=== PATIENT | male | born 1950 | race Caucasian/White ===

== ENCOUNTER 2022-05-12 23:36 | Outpatient (REF) | payer MEDICARE, BC, SELFPAY | END 2022-05-12 23:37 | disposition home or self-care (01) | LOC: LBN 23:36 | PROVIDERS: Visit Provider Nurse Practitioner Family | DX: R35.0 Frequency of micturition (principal) | CPT/HCPCS: 87077; 87086; 87186 ==

== ENCOUNTER 2022-06-03 02:50 | Inpatient (IN) | payer MEDICARE, BC, OTHER, SELFPAY ==
[2022-06-03] VITALS (50 sets, daily range): BP systolic 116–144; BP diastolic 64–88; PULSE 74–102; RESP 12–30; TEMP 36.3–37.1; O2SAT 96–100; BMI 25.2
--- NOTE | 2022-06-03 03:00 | DI.RAD_ITS ---
Exam(s) XR CHEST 1V IN DI DEPT EXAM: XR CHEST 1V IN DI DEPT CLINICAL HISTORY: vomiting TECHNIQUE: 2D digital imaging was performed. COMPARISON: No exams were available for comparison FINDINGS: The exam is limited by poor pulmonary inflation. The heart size is within normal limits. A pacemak er is noted. There is basilar atelectasis. There is no gross infiltrate. The stomach appears somew hat distended. No free air is noted beneath the diaphragm. IMPRESSION: Limited exam. Basilar atelectasis. Gastric distension. DATA REPOSITORY: RADIATION DOSE DELIVERED:
--- NOTE | 2022-06-03 03:00 | DI.CT_ITS ---
Exam(s) CT HEAD WO EXAM: CT HEAD WO CLINICAL HISTORY: vomiting. TECHNIQUE: Imaging Protocol: Axial computed tomography images with coronal and sagittal reformatted images were created and reviewed COMPARISON: No exams were available for comparison FINDINGS: Ventricles and Extra axial spaces: Normal in size and morphology for the patient's age. Hemorrhage: None. Cerebral parenchyma: Moderate atrophy. White matter changes consistent with small vessel disease. Midline shift: None. Brainstem/Cerebellum: Normal. Calvarium: Normal. Visualized Paranasal sinuses/Mastoids: Clear. IMPRESSION: No acute abnormality. RADIATION DOSE DELIVERED: 796.72mGy.cm Total DLP 796.72mGy.cm Total DLP DATA REPOSITORY: All CT scans at this facility are submitted to the National Radiology Data Registry (NRDR) Dose Index Registry (DIR) with the [employer] ([employer]). RADIATION OPTIMIZATION: All CT scans at this facility use at least one of these dose optimization te chniques: automated exposure control; mA and/or kV adjustment per patient size (includes targeted exa ms where dose is matched to clinical indication); or iterative reconstruction.
--- NOTE | 2022-06-03 03:00 | DI.CT_ITS ---
Exam(s) CT ABDOMEN PELVIS W EXAM: CT ABDOMEN PELVIS W CLINICAL HISTORY: vomiting, hx of abd surgery. TECHNIQUE: Imaging Protocol: Axial computed tomography images with coronal and sagittal reformatted images were created and reviewed CONTRAST MATERIAL: Intravenous: Omnipaque 350 Contrast volume:100 ml Oral: no COMPARISON: CR XR CHEST 1V IN DI DEPT from 06/03/2022 FINDINGS: ABDOMEN: Lung Bases: Limited due to respiratory motion. Basilar atelectasis or scarring. Small hiatal hernia . Pacemaker leads. Liver: Somewhat limited evaluation due to motion. Question fatty infiltration. Normal size.. No me asurable mass. Gallbladder and biliary tract: Cholelithiasis. No biliary dilation. Pancreas: Normal density, no abnormal calcifications or inflammatory process. Spleen: Normal. Kidneys: Normal size, contour and axis. No radiodense stones or obstructive uropathy. No masses seen. Adrenal glands: No masses seen. Abdominal Aorta: Abdominal portion non-dilated. Atherosclerotic changes. Stomach and small bowel: Marked gastric distention without evidence of obstructing mass. Small bowel nondistended. PELVIS: Bladder: No gross wall thickening. No calculi.No focal mass. Bowel: Wall thickening of the ascending colon the small amount of surrounding fluid in some edema in the surrounding fat. Remainder of the colon unremarkable.. Appendix not seen. Peritoneal cavity: No ascites, collection or mesenteric inflammatory response. Bones: Within normal limits for age. Reproductive organs: Mildly enlarged prostate.. Lymph nodes: Unremarkable. Impression: Wall thickening of the ascending colon with surrounding edema , suspicious for colitis. Gastric distension without evidence obstructing mass. Could be secondary to stricture. No visible i nflammatory changes. RADIATION DOSE DELIVERED: 847.02mGy.cm Total DLP DATA REPOSITORY: All CT scans at this facility are submitted to the National Radiology Data Registry (NRDR) Dose Index Registry (DIR) with the [employer] (ACR). RADIATION OPTIMIZATION: All CT scans at this facility use at least one of these dose optimization te chniques: automated exposure control; mA and/or kV adjustment per patient size (includes targeted exa ms where dose is matched to clinical indication); or iterative reconstruction.
[2022-06-03 03:12] LABS: BE (Venous) 1 mmol/L (-2-3); HCO3 (Venous) 24 mmol/L (23-28); O2 Sat (Venous) 99 %; TCO2 (Venous) 21 mmol/L (24-29); pCO2 (Venous) 30 mmHg (41-51); pH (Venous) 7.52 (7.31-7.41); pO2 (Venous) 99 mmHg
[2022-06-03 03:14] LABS: Abs Immature Grans 0.02 10^3/uL (0.0-0.06); Absolute Basophil Count 0.04 10^3/uL (0.0-0.2); Absolute Eosinophil Count 0.14 10^3/uL (0.0-0.7); Absolute Lymphocyte Count 1.06 10^3/uL (1.2-3.4); Absolute Monocyte Count 0.83 10^3/uL (0.1-0.8); Basophils % 0.5; Eosinophils % 1.8; HCT 42.9 % (40.0-50.0); HGB 14.7 g/dL (13.5-17.5); Immature Grans % 0.3; Lymphocytes % 13.4; MCH 30.8 pg (27.0-33.0); MCHC 34.3 % (32.0-36.0); MCV 90 fL (80-95); MPV 10.4 fL (8.0-11.0); Monocytes % 10.5; Neutrophils % 73.5; RBC 4.77 10^6/uL (4.36-5.78); RDW 14.1 % (11.8-14.1); RDW-SD 47.1 fL; WBC 7.89 10^3/uL (4.4-10.8)
[2022-06-03 03:28] LABS: Diff Comment PLT Morph Reviewed; Platelet Count 93 10^3/uL (130-400)
[2022-06-03 03:29] LABS: ALT 36 U/L (16-63); AST 40 U/L (15-37); Albumin 3.1 g/dL (3.4-5.0); Alkaline Phosphatase 186 U/L (46-116); Anion Gap 8.6 mmol/L (3-11); BUN 19 mg/dL (7-18); Bilirubin, Total 1.6 mg/dL (0.2-1.0); CO2 24.4 mmol/L (21.0-32.0); Calcium 8.8 mg/dL (8.5-10.1); Chloride 101 mmol/L (98-107); Estimated GFR 79.47 (mL/min/1.73m2); Glucose 241 mg/dL (74-106); Potassium 3.3 mmol/L (3.5-5.1); Sodium 134 mmol/L (136-145); Total Protein 7.5 g/dL (6.4-8.2)
[2022-06-03] MEDS: Normal Saline 1,000 ML 1000 ML IV (03:30)
[2022-06-03] MEDS: Ondansetron 4 MG/2 ML VIAL IVP ×2 (03:31→08:00)
[2022-06-03 03:34] LABS: Lipase 77 U/L (73-393); Troponin I < 50 ng/L (<or=60)
--- NOTE | 2022-06-03 03:35 | ED.GENADUL_ITS ---
Discharge Plan Disposition Patient Disposition: [facility] INPATIENT Condition: Stable Discharge Details Chief Complaint: Nausea/Vomit/Diar Clinical Impression: Gastric outlet obstruction Primary Care Provider: Unknown,Unknown ED Provider: Silvio Robles Home Meds and New Rx's Prescriptions: No Action atorvastatin 40 mg Tablet 40 mg PO QHS sennosides 8.6 mg Tablet 17.2 mg PO BID PRN citalopram 40 mg Tablet 40 mg PO DAILY atenolol 25 mg Tablet 25 mg PO HS acetaminophen 500 mg Tablet 1,000 mg PO Q8H PRN famotidine 20 mg Tablet 20 mg PO BID ondansetron 4 mg Tablet,Disintegrating 4 mg PO Q8H PRN insulin lispro [Humalog KwikPen Insulin] 100 unit/mL Insulin Pen 1 sliding scale dose SUBCUT USEASDIRECTD memantine [Namenda] 10 mg Tablet 10 mg PO BID insulin glargine [Basaglar KwikPen U-100 Insulin] 100 unit/mL (3 mL) Insulin Pen 25 unit SUBCUT QAM Victoza 2-Dionisio 0.6 mg/0.1 mL (18 mg/3 mL) Pen Injector 0.6 mg SUBCUT DAILY Medical Decision Making 72-year-old male presents brought in by EMS after mechanical fall at [facility], unclear details of fall, no external signs of trauma, patient did have episode of emesis in route following commands, opening eyes spontaneously responding to verbal stimuli, baseline dementia. Abdomen soft nontender nondistended. However given age unknown mechanism of injury and presentation of vomiting must consider intracranial process versus viral syndrome versus intra- abdominal process such as enterocolitis obstruction less likely cholecystitis or appendicitis versus less assess for cardiac etiology of fall although not endorsing any chest pain versus metabolic derangement versus less likely stroke. Screening labs imaging disposition pending reassessment and results 7: 31 imaging concerning for gastric outlet obstruction. Will place NG tube at bedside. Patient hemodynamically stable. I discussed case with Dr. Barrios of general surgery who will admit patient and plan for EGD today. We will continue with fluids and NG tube to suction. HPI General Date/Time Provider Initiated Documentation: 06/03/22 03:00 . HPI Narrative: 72-year-old male presents brought in from [facility] after mechanical fall this evening unknown details of fall. Patient had episode of emesis in route. Per report is also had some loose stool. Patient has dementia at baseline history of physical limited by baseline mental status Related Data Home Medications Medication Instructions Recorded Confirmed acetaminophen 500 mg tablet 1,000 mg PO Q8H PRN 06/03/22 06/03/22 atenolol 25 mg tablet 25 mg PO HS 06/03/22 06/03/22 atorvastatin 40 mg tablet 40 mg PO QHS 06/03/22 06/03/22 citalopram 40 mg tablet 40 mg PO DAILY 06/03/22 06/03/22 famotidine 20 mg tablet 20 mg PO BID 06/03/22 06/03/22 insulin glargine 100 unit/mL (3 25 unit subcut QAM 06/03/22 06/03/22 mL) subcutaneous pen (Basaglar KwikPen U-100 Insulin) insulin lispro 100 unit/mL 1 sliding scale dose subcut 06/03/22 06/03/22 subcutaneous pen (Humalog KwikPen USEASDIRECTD (U-100) Insulin) liraglutide 0.6 mg/0.1 mL (18 mg/3 0.6 mg subcut DAILY 06/03/22 06/03/22 mL) subcutaneous pen injector (Victoza 2-Dionisio) memantine 10 mg tablet (Namenda) 10 mg PO BID 06/03/22 06/03/22 ondansetron 4 mg disintegrating 4 mg PO Q8H PRN 06/03/22 06/03/22 tablet sennosides 8.6 mg tablet 17.2 mg PO BID PRN 06/03/22 06/03/22 Allergies Allergy/AdvReac Type Severity Reaction Status Date / Time codeine Allergy Unverified 06/03/22 03:42 Sulfa (Sulfonamide Allergy Unverified 06/03/22 03:42 Antibiotics) tetracycline Allergy Unverified 06/03/22 03:42 General Stated Complaint: Nausea/Vomit/Diar YUDITH: 3 Review of Systems Narrative: Review of Systems Constitutional: Fall Eyes: negative ENT: negative Cardiovascular: negative Respiratory: negative Gastrointestinal: Vomiting : negative Musculoskeletal: negative Skin: negative Neurologic: negative Psych: negative PFSH All Active Problems (Updated 06/03/22 @ 07:34 by Silvio Robles MD) Gastric outlet obstruction (Acute) 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 Exam Narrative Exam Narrative: Physical Examination General: alert, awake HEENT: normocephalic, atraumatic; PERRL, EOM intact, conjunctiva normal; no nasal discharge; slight drying of oral mucosa Neck: supple, trachea midline; full ROM Chest: normal to inspection Respiratory: normal respiratory effort, speaking in full sentences, clear to auscultation, no wheezing, rales or rhonchi Cardiac: regular rate, regular rhythm, S1S2 intact, no murmurs rubs or gallops GI: abdomen soft, non-tender, non-distended; no palpable mass or hepatosplenomegaly Skin: no lesions, rashes or trauma appreciated Neuro: Opening eyes to command, responding to verbal stimuli, moving all EXTR Extremities: Moving all extremities no deformity Psych: Appropriate mood and affect Course Vital Signs Vital signs: Vital Signs Temperature 36.8 C 06/03/22 02:48 Pulse 93 H 06/03/22 02:48 Respiratory Rate 16 06/03/22 02:48 Blood Pressure 126/74 06/03/22 02:48 Pulse Oximetry 100 06/03/22 02:48 Temperature 36.8 C 06/03/22 02:48 Temperature Source Tympanic 06/03/22 02:48 Pulse 91 H 06/03/22 03:16 Pulse 90 06/03/22 03:30 Respiratory Rate 19 06/03/22 03:30 Respiratory Effort 06/03/22 03:02 Blood Pressure 128/76 06/03/22 03:16 Blood Pressure Mean 89 06/03/22 03:16 Blood Pressure Position Sitting 06/03/22 02:48 Pulse Oximetry 99 06/03/22 03:30 Oxygen Delivery Method Room Air 06/03/22 02:48 Oxygen Flow Rate 0 06/03/22 02:48 Lab/Test Results Lab/Test Results: Laboratory Tests Range/Units 06/03/22 06/03/22 06/03/22 03:00 03:00 03:00 WBC (4.4-10.8) 10^3/uL RBC (4.36-5.78) 10^6/uL Hgb (13.5-17.5) g/dL Hct (40.0-50.0) % MCV (80-95) fL MCH (27.0-33.0) pg MCHC (32.0-36.0) % RDW (11.8-14.1) % Plt Count (130-400) 10^3/uL MPV (8.0-11.0) fL Immature Gran % Neutrophils % Lymphocytes % Monocytes % Eosinophils % Basophils % Nucleated RBC % (0.0-0.3) % Absolute Neutrophils (1.2-6.7) 10^3/uL Absolute Lymphocytes (1.2-3.4) 10^3/uL Absolute Monocytes (0.1-0.8) 10^3/uL Absolute Eosinophils (0.0-0.7) 10^3/uL Absolute Basophils (0.0-0.2) 10^3/uL VBG pH (7.31-7.41) 7.52 H VBG pCO2 (41-51) mmHg 30 L VBG pO2 mmHg 99 VBG HCO3 (23-28) mmol/L 24 VBG Total CO2 (24-29) mmol/L 21 L VBG O2 Saturation % 99 VBG Base Excess (-2-3) mmol/L 1 Sodium (136-145) mmol/L 134 L Potassium (3.5-5.1) mmol/L 3.3 L Chloride (98-107) mmol/L 101 Carbon Dioxide (21.0-32.0) mmol/L 24.4 Anion Gap (3-11) mmol/L 8.6 BUN (7-18) mg/dL 19 H Creatinine (0.70-1.30) mg/dL 1.0 Est GFR (CKD-EPI 2020) (mL/min/1.73m2) 79.47 Glucose (74-106) mg/dL 241 H Calcium (8.5-10.1) mg/dL 8.8 Total Bilirubin (0.2-1.0) mg/dL 1.6 H AST (15-37) U/L 40 H ALT (16-63) U/L 36 Alkaline Phosphatase (46-116) U/L 186 H Troponin I (<or=60) ng/L < 50 Total Protein (6.4-8.2) g/dL 7.5 Albumin (3.4-5.0) g/dL 3.1 L Lipase (73-393) U/L 77 Range/Units 06/03/22 03:00 WBC (4.4-10.8) 10^3/uL 7.89 RBC (4.36-5.78) 10^6/uL 4.77 Hgb (13.5-17.5) g/dL 14.7 Hct (40.0-50.0) % 42.9 MCV (80-95) fL 90 MCH (27.0-33.0) pg 30.8 MCHC (32.0-36.0) % 34.3 RDW (11.8-14.1) % 14.1 Plt Count (130-400) 10^3/uL 93 L MPV (8.0-11.0) fL 10.4 Immature Gran % 0.3 Neutrophils % 73.5 Lymphocytes % 13.4 Monocytes % 10.5 Eosinophils % 1.8 Basophils % 0.5 Nucleated RBC % (0.0-0.3) % 0.0 Absolute Neutrophils (1.2-6.7) 10^3/uL 5.80 Absolute Lymphocytes (1.2-3.4) 10^3/uL 1.06 L Absolute Monocytes (0.1-0.8) 10^3/uL 0.83 H Absolute Eosinophils (0.0-0.7) 10^3/uL 0.14 Absolute Basophils (0.0-0.2) 10^3/uL 0.04 VBG pH (7.31-7.41) VBG pCO2 (41-51) mmHg VBG pO2 mmHg VBG HCO3 (23-28) mmol/L VBG Total CO2 (24-29) mmol/L VBG O2 Saturation % VBG Base Excess (-2-3) mmol/L Sodium (136-145) mmol/L Potassium (3.5-5.1) mmol/L Chloride (98-107) mmol/L Carbon Dioxide (21.0-32.0) mmol/L Anion Gap (3-11) mmol/L BUN (7-18) mg/dL Creatinine (0.70-1.30) mg/dL Est GFR (CKD-EPI 2020) (mL/min/1.73m2) Glucose (74-106) mg/dL Calcium (8.5-10.1) mg/dL Total Bilirubin (0.2-1.0) mg/dL AST (15-37) U/L ALT (16-63) U/L Alkaline Phosphatase (46-116) U/L Troponin I (<or=60) ng/L Total Protein (6.4-8.2) g/dL Albumin (3.4-5.0) g/dL Lipase (73-393) U/L
[2022-06-03] MEDS: Omnipaque 350 MG/ML 100 ML BTL IJ (04:29)
[2022-06-03] MEDS: Normal Saline Flush 10 ML SYR IVP ×2 (04:31→05:44)
[2022-06-03] MEDS: Normal Saline 500 ML 1000 ML IV (05:44)
[2022-06-03] MEDS: Lidocaine 2% Jelly 6 ML SYR (06:39)
[2022-06-03 06:42] LABS: Bilirubin Negative (Negative); Blood Trace-intact (Negative); Clarity Clear (Clear); Glucose >=1000 mg/dL (Negative); Ketones Trace mg/dL (Negative); Leukocyte Esterase Negative (Negative); Nitrite Negative (Negative); Specific Gravity 1.015 (1.005-1.025)
--- NOTE | 2022-06-03 06:53 | DI.VRAD_ITS ---
PROCEDURE INFORMATION: Exam: CT Head Without Contrast Exam date and time: 06/03/2022 3:59 AM Age: 72 years old Clinical indication: Patient HX: Vomiting, fall TECHNIQUE: Imaging protocol: Computed tomography of the head without contrast. Radiation optimization: All CT scans at this facility use at least one of these dose optimization techniques: automated exposure control; mA and/or kV adjustment per patient size (includes targeted exams where dose is matched to clinical indication); or iterative reconstruction. COMPARISON: No relevant prior studies available. FINDINGS: Brain: Diffuse involutional changes and white matter hypodensities consistent with age. These findings are most likely due to atrophy and small vessel disease. No acute hemorrhage or acute terratorial infarct. Vascular calcifications at the [place]. Cerebral ventricles: No gross venticulomegaly. Paranasal sinuses: No significant opacity or air fluid levels. Mastoid air cells: Mastoids: No significant abnormality. Orbital cavities: No acute abnormality. Bones/joints: No acute fracture. Soft tissues: No significant abnormality. IMPRESSION: No acute intracranial abnormality. If concern persists, consider MRI or CTA. Dictated and Authenticated by: Silvio Ley MD. Ordering:ANNE Anguiano MD
--- NOTE | 2022-06-03 07:03 | DI.VRAD_ITS ---
PROCEDURE INFORMATION: Exam: CT Abdomen And Pelvis With Contrast Exam date and time: 06/03/2022 4:03 AM Age: 72 years old Clinical indication: Vomiting; Prior surgery; Surgery date: 6+ months; Surgery type: Unknown surgery TECHNIQUE: Imaging protocol: Computed tomography of the abdomen and pelvis with contrast. Radiation optimization: All CT scans at this facility use at least one of these dose optimization techniques: automated exposure control; mA and/or kV adjustment per patient size (includes targeted exams where dose is matched to clinical indication); or iterative reconstruction. Contrast material: OMNIPAQUE 350; Contrast volume: 100 ml; Contrast route: INTRAVENOUS (IV); COMPARISON: No relevant prior studies available. FINDINGS: Limitations: None. Tubes, catheters and devices: Leads from a cardiac device. Lungs: Dependent likely atelectatic or scarring changes with interstitial thickening in the lungs suspected. Diaphragm: Tiny hiatal hernia. Liver: Low density liver suggesting fatty infiltration without focal lesions or ductal dilitation. Consider non-emergent follow-up with LFT values. Gallbladder and bile ducts: Gallstones without evidence of acute cholecystitis or choledocholithiasis. Pancreas: Normal. No ductal dilation. Spleen: Borderline splenomegaly with splenic calcifications. Adrenal glands: Normal. No mass. Kidneys and ureters: No stone or hydronephrosis. Possible subcentimeter cyst on the right. Stomach and bowel: Markedly distended stomach with normal caliber duodenum in full thickening versus nondistention at the gastric duodenal junction. Direct visualization or barium study may be helpful in follow-up. Wall thickening and fatty stranding in the right colon centered at the level of the cecum and ascending colon. Infectious or inflammatory changes not excluded here. No pneumatosis. The terminal ileum is not well distended. Appendix: A normal appendix is not seen. Intraperitoneal space: No free air. Small amount of fluid in the right lower quadrant mesentery. Vasculature: Atherosclerotic disease of the abdominal aorta extends into the mesenteric, renal, and iliac arteries without aneurysm or dissection. No venous thrombus. Lymph nodes: Left axillary nodes are calcified. Urinary bladder: Unremarkable as visualized. Reproductive: Unremarkable as visualized. Bones/joints: Osteopenia, degenerative changes, and a mild scoliosis without acute fracture or dislocation. Soft tissues: Mild bilateral gynecomastia changes. Fatty ventral wall hernia at the supraumbilical level without bowel contained within. Mild stranding of the fat. IMPRESSION: 1. Markedly distended stomach with possible transition at the gastric duodenal junction. 2. No bowel obstruction or free air. 3. Wall thickening and fatty stranding with adjacent fluid along the cecum and ascending colon possibly due to focal colitis. No discrete appendix visualized. Follow-up to resolution recommended. 4. Prostatomegaly. 5. Atherosclerotic disease. 6. Possible fatty liver. 7. Granulomatous changes. 8. Gallstone without evidence of acute cholecystitis or definite choledocholithiasis. Dictated and Authenticated by: Silvio Ley MD. Ordering:ANNE Anguiano MD
[2022-06-03 07:04] LABS: Bacteria Rare HPF (Negative); C & S Indicated? No; Casts Negative LPF (Negative); Epithelial Cells Rare HPF (Negative); Mucus Negative (Negative); WBC 0-2 HPF (0-5)
[2022-06-03 07:34] LABS: Source Nasal/Nares
[2022-06-03] MEDS: LORazepam 2 MG/ML VIAL 0.5 MG IVP (08:00)
[2022-06-03] MEDS: Normal Saline 1,000 ML 150 ML IV ×3 (08:01→23:59)
[2022-06-03 08:07] LABS: COVID-19 PCR Negative (Negative)
--- NOTE | 2022-06-03 08:18 | NUR.NOTE ---
Nursing Note: NG tube insertion attempted x2 with MD - pt has dementia at baseline unable to cooperate. Second attempt made with pre-medication. Not able to insert NG tube at this time.
--- NOTE | 2022-06-03 10:19 | ANES.PREOP_ITS ---
General Info Date of Service Date Performed: 06/03/22 Height: 5 ft 10 in Weight: 80 kg Body Mass Index (BMI): 25.2 Surgical Procedure: Operation Date: 06/03/22 12:05 Proposed Procedure Side Surgeon p Gastroscopy Saulo Barrios MD Meds Allergies and Home Medications Allergies Allergy/AdvReac Type Severity Reaction Status Date / Time codeine Allergy Unverified 06/03/22 03:42 Sulfa (Sulfonamide Allergy Unverified 06/03/22 03:42 Antibiotics) tetracycline Allergy Unverified 06/03/22 03:42 Home Medication Medication Instructions Recorded acetaminophen 500 mg tablet 1,000 mg PO Q8H PRN 06/03/22 atenolol 25 mg tablet 25 mg PO HS 06/03/22 atorvastatin 40 mg tablet 40 mg PO QHS 06/03/22 citalopram 40 mg tablet 40 mg PO DAILY 06/03/22 famotidine 20 mg tablet 20 mg PO BID 06/03/22 insulin glargine 100 unit/mL (3 25 unit subcut QAM 06/03/22 mL) subcutaneous pen (Basaglar KwikPen U-100 Insulin) insulin lispro 100 unit/mL 1 sliding scale dose subcut 06/03/22 subcutaneous pen (Humalog KwikPen USEASDIRECTD (U-100) Insulin) liraglutide 0.6 mg/0.1 mL (18 mg/3 0.6 mg subcut DAILY 06/03/22 mL) subcutaneous pen injector (Victoza 2-Dionisio) memantine 10 mg tablet (Namenda) 10 mg PO BID 06/03/22 ondansetron 4 mg disintegrating 4 mg PO Q8H PRN 06/03/22 tablet sennosides 8.6 mg tablet 17.2 mg PO BID PRN 06/03/22 Current Visit Medications: Current Medications Generic Name Dose Route Start Last Admin Trade Name Freq PRN Reason Stop Dose Admin Sodium Chloride 500 mls @ 0 mls/hr 06/03/22 07:35 Saline 500ml Bag IV PRN PRN As Directed Sodium Chloride 1,000 mls @ 150 mls/hr 06/03/22 07:45 06/03/22 08:01 Saline 1000ml Bag IV 150 mls/hr INFUSION EDUARDO Administration IV Miscellaneous Supplies 1 each 06/03/22 07:45 Iv Access IV DIRECTED EDUARDO Iohexol 100 ml 06/03/22 04:30 06/03/22 04:29 Omnipaque 350 Mg/Ml 100 Ml Btl IJ 07/03/22 23:59 100 ml DIRECTED EDUARDO Administration Sodium Chloride 250 ml 06/03/22 04:30 06/03/22 04:30 Normal Saline 250 Ml Bag IJ 50 ml DIRECTED EDUARDO Administration Sodium Chloride 0 ml 06/03/22 04:31 06/03/22 05:44 Normal Saline Flush 10 Ml Syr IVP 20 ml PRN PRN Administration Sodium Chloride 0 ml 06/03/22 07:35 Normal Saline Flush 10 Ml Syr IVP PRN PRN PFSH Active Problems Active Problems: Problem Status Onset Code Gastric outlet obstruction K31.1 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 Hypertension, benign I10 Alzheimer's disease with early onset G30.0, F02.80 Sensory hearing loss, bilateral H90.3 Tobacco Smoking/Tobacco Use Status: Unknown Alcohol Alcohol Intake: never Substance Use Substance use: Never Substance use type: does not use Vital Signs and Lab Results Vital Signs Most Recent Vital Signs in EMR: Most Recent Vital Signs Temp Pulse Resp BP Pulse Ox 37 C 74 20 120/82 99 06/03/22 09:35 06/03/22 09:35 06/03/22 09:35 06/03/22 09:35 06/03/22 09:35 Point of Care Results Point of Care Results: Finger Stick Blood Glucose 224 06/03/22 03:20 Lab Results Result Diagrams: 06/03/22 03:00 06/03/22 03:00 Blood Type / Crossmatch: No Data to Display Complete Blood Count: White Blood Count 7.89 10^3/uL (4.4-10.8) 06/03/22 03:00 Red Blood Count 4.77 10^6/uL (4.36-5.78) 06/03/22 03:00 Hemoglobin 14.7 g/dL (13.5-17.5) 06/03/22 03:00 Hematocrit 42.9 % (40.0-50.0) 06/03/22 03:00 Platelet Count 93 10^3/uL (130-400) L 06/03/22 03:00 Complete Metabolic Panel: Sodium 134 mmol/L (136-145) L 06/03/22 03:00 Potassium 3.3 mmol/L (3.5-5.1) L 06/03/22 03:00 Chloride 101 mmol/L (98-107) 06/03/22 03:00 Carbon Dioxide 24.4 mmol/L (21.0-32.0) 06/03/22 03:00 BUN 19 mg/dL (7-18) H 06/03/22 03:00 Creatinine 1.0 mg/dL (0.70-1.30) 06/03/22 03:00 Est GFR (CKD-EPI 2020) 79.47 (mL/min/1.73m2) 06/03/22 03:00 Calcium 8.8 mg/dL (8.5-10.1) 06/03/22 03:00 Albumin 3.1 g/dL (3.4-5.0) L 06/03/22 03:00 Glucose 241 mg/dL (74-106) H 06/03/22 03:00 Liver Function Panel: Alanine Aminotransferase (ALT/SGPT) 36 U/L (16-63) 06/03/22 03: 00 Aspartate Amino Transf (AST/SGOT) 40 U/L (15-37) H 06/03/22 03: 00 Coagulation Panel: No Data to Display Cardiac Panel: Troponin I < 50 ng/L (<or=60) 06/03/22 Arterial Blood Gas: No Data to Display Venous Blood Gas: Venous Blood pH 7.52 (7.31-7.41) H 06/03/22 03:00 Venous Blood Partial Pressure O2 99 mmHg 06/03/22 03:00 Venous Blood Partial Pressure CO2 30 mmHg (41-51) L 06/03/22 03 :00 Venous Blood Oxygen Saturation 99 % 06/03/22 03:00 Venous Blood HCO3 24 mmol/L (23-28) 06/03/22 03:00 Venous Blood Base Excess 1 mmol/L (-2-3) 06/03/22 03:00 Venous Blood Total Carbon Dioxide 21 mmol/L (24-29) L 06/03/22 03:00 Pancreas Panel: Lipase 77 U/L (73-393) 06/03/22 03:00 Thyroid Panel: No Data to Display Infectious Disease: Coronavirus (COVID-19)(PCR) Negative (Negative) 06/03/22 07:25 Coronavirus 2019 Source Nasal/Nares 06/03/22 07:25 Blood Cultures: No Data to Display Toxicology Panel: No Data to Display Imaging and Studies Imaging and Studies Study information below may be from another EMR and interpreted by another provider. Please see original notes in EMR for more complete details. Stress Test Summary: 2015: 7.6 METS, LVEF 71%, no ischemia or scar. Echocardiogram Summary: stress ECHO 2016: LVEF 65% at rest, no evidence of ischemia. trace MR, trace TR. Anesthesia Assessment and Plan Anesthesia History Personal History: No History of Anesthesia Complications Family History: No Family History of Anesthesia Complications Exercise Tolerance Exercise Tolerance: Metabolic Equivalents>4 (up and walking. ) Cardiac & Pulmonary Exam Cardiac Exam: Normal S1/S2 Heart Sounds Pulmonary Exam: Clear Bilateral Breath Sounds Implantable Cardiac Device Does patient have a Pacemaker or an ICD?: No Airway Exam Known Difficult Airway: No Mallampati Class: Unable to Assess Mouth Opening: Unable to Assess Thyromental Distance: Greater than 3 cm Neck Range of Motion: Unable to Assess Neck Circumference: Normal Teeth Condition: Unable to Assess ASA Classification ASA Score: ASA 3 Emergency Case?: Yes NPO Status NPO Status: Full Stomach Anesthesia Plan Resuscitation Status: Full Code Anesthesia Technique: General Anesthesia Airway Planned: Endotracheal Tube Monitors Used: Standard Monitors Preoperative Comments:: 72 yo male admitted with ? gastric outlet obstruction for EGD. CT abd with extremely dialated (liquid/air) stomach. An NGT was att empted in the ED without success with the assistance of ativan/zofran. Sig PMHx: HTN, alzheimers/dementia/PTSD, DM, Pacer (placed for recurrent syncope - aystole/van 2013, last check at [facility] 11/25/21 - normal fxn), cirrhosis with SUNSHINE with grade 1 varices and mild portal hypertiensive gastropathy, DDDR medtronic [id number]), nonobstructive CAD, GERD, EtOH abuse, myocardial perfusion 2015: 7.6 METS, LVEF 71%, no ischemia or scar. stress ECHO 2016: LVEF 65% at rest, no evidence of ischemia. trace MR, trace TR. Plan for GA/ETT, RSI, with attempt at preop NGT placement with lidocaine. Discussed plan with and she is in aggrement. DNR was also discussed, and will be recinded for the perioperative period, but the medical team can use its judgement vs how long the resucitation would last.
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
[2022-06-03] MEDS: Lactated Ringers 1,000 ML 30 ML IV (12:05)
[2022-06-03 12:23] LABS: Troponin I < 50 ng/L (<or=60)
--- NOTE | 2022-06-03 13:25 | ROE_ITS ---
Date of service: 06/03/22 Time of Service: 12:45 Operative Note Operative Note DATE OF PROCEDURE: 06/03/22 PRE-OP DIAGNOSIS: gastric outlet obstruction POST-OP DIAGNOSIS: other (Gastroparesis) PROCEDURE: Esophagogastroduodenoscopy, insertion of NGT SURGEON: Saulo Barrios Refer to Anesthesia Record ESTIMATED BLOOD LOSS: 0 PATHOLOGY: none sent COMPLICATIONS: None Patient was transported to: PACU Patient's condition: stable Indications: Lars is a 72-year-old male with Alzheimer's dementia who had a standing level fall. By report, he also had several episodes of vomiting prior to arrival in the emergency department. He underwent imaging of the torso as part of his trauma work-up, and a dilated stomach was identified. There was also the suggestion of a transition point in the area of the distal stomach, pylorus, or perhaps proximal duodenum. His dementia complicates history and physical. He is mildly distended on exam, but he does not seem tender. Attempts were made to place a nasogastric tube in an effort to decompress the stomach, but he was unable to tolerate this. Procedure Description: After the initiation of anesthesia, I advanced a standard gastroscope through the mouth past the hypopharynx and into the esophagus.? Under the direct vision of the scope, I advanced down the esophagus into the stomach.? Once I entered the stomach, it was evident that there was a significant amount of retained food product. Despite an extensive effort to evacuate this, I was not able to clear it all completely. I was, however, able to clear the area of the pylorus. The antrum and prepyloric stomach looked normal to me. There was some mild inflammation of the mucosa, but there was certainly no evidence of any large obstructing mass here. I was able to advance the scope beyond the pylorus into the first portion of the duodenum. The duodenal bulb was normal-appearing. The first second third portions of the duodenum also appeared normal. I was able to visualize the ampulla Vater. And there was no evidence of any kind of obstructive pathology in this area. Next, I backed the camera back up into the stomach. Again, there remained a fair amount of retained food product despite aggressive irrigation and evacuation. Certainly, there is no obvious lesion. I did not perform biopsies, since the indication for the procedure was gastric outlet obstruction, and, at least, by direct visualization, there does not appear to be a true gastric outlet obstruction. Therefore, I backed the scope into the esophagus and gently inserted a nasogastric tube. I was able to visualize the nasogastric tube entering the esophagus, and with active advancement, I removed the [place] sump drain into the stomach proper. The scope was then gently removed, we secured the nasogastric tube in place.
--- NOTE | 2022-06-03 14:12 | W.ANESPOSTOP ---
Postoperative Evaluation Date, Time and Location Date Performed: 06/03/22 Time Performed: 14:12 Patient Location: PACU Vital Signs Most Recent Imported Vital Signs: Most Recent Vital Signs Temp Pulse Resp BP Pulse Ox 36.3 C L 96 H 22 133/78 100 06/03/22 13:57 06/03/22 13:57 06/03/22 13:57 06/03/22 13:57 06/03/22 13:57 Pain Score Most Recent Pain Score: Most Recent Pain Score Pain Level 0 06/03/22 10:07 Assessment Mental Status: Awake (Alert & Oriented to Patient Baseline) Airway and Respiratory Function: Patent airway with normal (patient baseline) respiratory exam Cardiovascular Function: Hemodynamically Stable Hydration Status: Adequately Hydrated Nausea & Vomiting: No Nausea or Vomiting Pain: Pt. Denies Any Pain Peripheral Nerve Block: Patient did not receive a nerve block
[2022-06-03] MEDS: Atenolol 25 MG TAB PO (21:06)
[2022-06-03] MEDS: Memantine 5 MG TAB 10 MG PO (21:07)
[2022-06-03] MEDS: Famotidine 20 MG TAB PO (21:07)
[2022-06-04] MEDS: Normal Saline 1,000 ML 150 ML IV ×2 (06:14→12:26)
[2022-06-04 08:34] VITALS: BP 108/53; PULSE 71; RESP 18; TEMP 37.3; O2SAT 98
[2022-06-04] MEDS: Famotidine 20 MG TAB PO ×2 (08:49→21:38)
[2022-06-04] MEDS: Memantine 5 MG TAB 10 MG PO ×2 (08:49→20:38)
[2022-06-04] MEDS: Insulin Glargine 300 UNITS/3 ML PEN 25 UNITS SC (08:49)
[2022-06-04] MEDS: Citalopram 20 MG TAB 40 MG PO (08:49)
--- NOTE | 2022-06-04 10:20 | PDOC.CMIN ---
- If Service Date Differs Date of service: 06/04/22 Time of Service: 10:20 Care Management Initial Assess REASON FOR HOSPITALIZATION:: Gastric Outlet Obstruction PAST MEDICAL HISTORY/PAST SURGICAL HISTORY:: Gastric outlet obstruction (Acute). 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 Papilloma of oral cavity (Acute). Hypertension, benign (Acute). Alzheimer's disease with early onset (Acute). Sensory hearing loss, bilateral (Acute) PREVIOUS FUNCTIONAL STATUS/SOCIAL/FAMILY SUPPORTS:: Lars resides at [facility]. His , Camron resides in [place], [place]. CURRENT FUNCTIONAL STATUS:: Lars is sleeping soundly when CM enters his room; CM did not disturb. ADVANCE DIRECTIVES:: None on file. Has patient been provided with info about the portal/API?: No Did the patient sign up for the portal?: No CODE STATUS:: DNR/DNI INSURANCE COVERAGE / FINANCIAL ISSUES:: Medicare. [employer]. [id number] CURRENT HOME/COMMUNITY SERVICES/EQUIPMENT:: SNF: [facility] POTENTIAL DISCHARGE NEEDS:: Return to [facility] PATIENT/FAMILY EDUCATION NEEDS:: Review of discharge instructions. ANTICIPATED BARRIERS TO DISCHARGE:: None identified. TRANSPORTATION:: Via the rehab's W/C van. PLAN:: Lars will return to [facility] when ready per MD. CM will support coordinated return to the rehab, anticipate he will transport via the facility's wheelchair van.
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
--- NOTE | 2022-06-04 15:40 | NUR.NOTE ---
Patient's alarm sounded and he was found up, naked, walking around the room urinating. Patient directed to urinal. He was compliant. Bedding changed. Patient was given new gown. Feet were cleaned of urine. Will continue to monitor. Four side rails up and bed alarm on for patient's safety.
[2022-06-04 15:41] VITALS: BP 132/69; PULSE 61; RESP 20; TEMP 37.9; O2SAT 97
[2022-06-04] MEDS: Enoxaparin 40 MG/0.4 ML SYR SC (15:55)
[2022-06-04] MEDS: Atenolol 25 MG TAB PO (21:46)
[2022-06-04 22:55] VITALS: BP 161/89; PULSE 65; RESP 16; TEMP 36.4; O2SAT 98
--- NOTE | 2022-06-05 | DI.NM_ITS ---
Exam(s) NM GASTRIC EMPTYING CLINICAL HISTORY: delayed gastric emptying. COMPARISON: No exams were available for comparison EXAMINATION: PO Dose: 1 mCi Sulfur colloid in eggs FINDINGS: At 1 hour there is approximately 44 percent emptying of the gastric contents which is within normal l imits (normal range 10-63 percent emptying) At 2 hours there is approximately 81.4 percent emptying (normal 40-70 percent) 4 hour imaging was not performed IMPRESSION: 1. No evidence of delayed gastric emptying. SNM guidelines: 40% or more gastric emptying at 90 minutes is considered normal. Normal T 1/2 < 50 mi nutes. < 30% at 1 hour signifies abnormal rapid gastric emptying.
[2022-06-05] MEDS: Dextrose 50%-Water 25 GM/50 ML SYR IVP (00:35)
[2022-06-05] MEDS: DEXTROSE 5%-0.9% SALINE 1,000 ML 50 ML IV (06:55)
[2022-06-05 07:13] LABS: HCT 40.6 % (40.0-50.0); HGB 13.9 g/dL (13.5-17.5); MCH 30.8 pg (27.0-33.0); MCHC 34.2 % (32.0-36.0); MCV 90 fL (80-95); MPV 11.7 fL (8.0-11.0); RBC 4.51 10^6/uL (4.36-5.78); RDW 13.8 % (11.8-14.1); RDW-SD 46.2 fL; WBC 4.24 10^3/uL (4.4-10.8)
[2022-06-05 07:34] LABS: Anion Gap 8.4 mmol/L (3-11); BUN 10 mg/dL (7-18); CO2 25.6 mmol/L (21.0-32.0); CREATININE 0.8 mg/dL (0.70-1.30); Calcium 8.1 mg/dL (8.5-10.1); Chloride 110 mmol/L (98-107); Estimated GFR 93.45 (mL/min/1.73m2); Glucose 73 mg/dL (74-106); Magnesium 1.5 mg/dL (1.8-2.4); Sodium 144 mmol/L (136-145)
[2022-06-05 07:47] LABS: Hemoglobin A1C 8.4 % (<5.7)
[2022-06-05 07:54] VITALS: BP 118/67; PULSE 77; RESP 18; TEMP 36.4; O2SAT 97
[2022-06-05 07:54] LABS: Platelet Count 54 10^3/uL (130-400)
[2022-06-05] MEDS: Normal Saline Flush 10 ML SYR IVP (11:25)
[2022-06-05 11:26] VITALS: BP 148/79; PULSE 64; RESP 16; TEMP 36; O2SAT 99
[2022-06-05] MEDS: Citalopram 20 MG TAB 40 MG PO (11:26)
[2022-06-05] MEDS: Famotidine 20 MG TAB PO (11:26)
[2022-06-05] MEDS: Memantine 5 MG TAB 10 MG PO (11:26)
--- NOTE | 2022-06-05 11:26 | CMPROGNOTE_ITS ---
- If Service Date Differs Date of service: 06/05/22 Time of Service: 11:26 Care Management Progress Note S/O: Lars remains inpatient, remains at his bedside. No change to overall plan. CM continues to follow. A: 72 year old male admitted to [facility] 06/03/22 for Gastric Outlet Obstruction P: Lars will return to [facility] when ready per MD. CM will support coordinated return to the rehab, anticipate he will transport via the facility's wheelchair van.
[2022-06-05] MEDS: Insulin Aspart 300 UNITS/3 ML PEN SC (11:55)
[2022-06-05] MEDS: Insulin Glargine 300 UNITS/3 ML PEN 25 UNITS SC (11:56)
[2022-06-05] MEDS: Haloperidol 5 MG/ML VIAL IM (12:23)
[2022-06-05] MEDS: diphenhydrAMINE 50 MG/ML VIAL (12:31)
[2022-06-05] MEDS: OLANZapine 10 MG VIAL 5 MG IM (12:49)
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
--- NOTE | 2022-06-05 15:05 | DSE_ITS ---
Date of service: 06/05/22 Time of Service: 15:05 DS: Diagnosis Discharge Diagnosis (1) Behavioral and psychological symptoms of dementia: Status: Acute (2) Gastric outlet obstruction: Status: Ruled-out Discharge Plan Disposition Patient Disposition: ICF (LEVEL 2) [facility] Condition: Stable Discharge Details Reason For Visit: Gastric Outlet Obstruction Admit Date/Time: 06/03/22 07:35 Admit Provider: Saulo Barrios Attending Provider: Saulo Barrios Primary Care Provider: [facility] Hospital Course: Patient was admitted from the ER on 06/03 with Nausea and Vomiting and ? gastric outlet obstruction. He underwent an EGD the next day which was unremarkable. He then had a gastric emptying study which showed 89% of the food bolus out of his stomach in 2 hours. Patient was tolerating a diet prior to the study. He has not had any nausea or vomiting. Recommend small meals and often. Home Meds and New Rx's Prescriptions: Continued atorvastatin 40 mg Tablet 40 mg PO QHS sennosides 8.6 mg Tablet 17.2 mg PO BID PRN citalopram 40 mg Tablet 40 mg PO DAILY atenolol 25 mg Tablet 25 mg PO HS acetaminophen 500 mg Tablet 1,000 mg PO Q8H PRN famotidine 20 mg Tablet 20 mg PO BID ondansetron 4 mg Tablet,Disintegrating 4 mg PO Q8H PRN insulin lispro [Humalog KwikPen Insulin] 100 unit/mL Insulin Pen 1 sliding scale dose SUBCUT USEASDIRECTD memantine [Namenda] 10 mg Tablet 10 mg PO BID insulin glargine [Basaglar KwikPen U-100 Insulin] 100 unit/mL (3 mL) Insulin Pen 25 unit SUBCUT QAM Victoza 2-Dionisio 0.6 mg/0.1 mL (18 mg/3 mL) Pen Injector 0.6 mg SUBCUT DAILY Discharge Instructions Activity:: Activity as Tolerated Equipment/Supplies:: No Equipment Needed Diet:: As Tolerated Discharge Orders Discharge Orders: Discharge Order (Routine); Ordered 06/05/22 Ordered By: Sweta Rodriguez DS: Summary Time Spent with Patient providing and/or coordinating discharge services: Less than 30 minutes Status at Discharge Functional status at discharge: independent ambulation Overall status at discharge: patient is back to baseline Mental Status: mental status grossly normal Speech and Movement: speech and movement normal Mood: congruent mood Affect: other (baseline) Exam Psych Mental Status: mental status grossly normal Speech and Movement: speech and movement normal Mood: congruent mood Affect: other (baseline) DS: Data Vitals/I&O Vitals and I&O: Vital Signs Temperature 96.8 F L 06/05/22 11:26 Temperature Source Tympanic 06/05/22 11:26 Pulse 64 06/05/22 11:26 Pulse Rhythm Regular 06/05/22 11:15 Pulse 89 06/03/22 06:46 Respiratory Rate 16 06/05/22 11:26 Respiratory Effort Non-Labored 06/05/22 14:17 Respiratory Depth Normal 06/05/22 11:15 Respiratory Pattern Normal 06/05/22 11:15 Blood Pressure 148/79 H 06/05/22 11:26 Blood Pressure Mean 92 06/03/22 06:46 Blood Pressure Position Sitting 06/03/22 02:48 Pulse Oximetry 99 06/05/22 11:26 Respiratory End-tidal CO2 33 06/03/22 14:12 Oxygen Delivery Method Room Air 06/05/22 11:26 Oxygen Flow Rate 0 06/05/22 11:26 Pain Level 0 06/05/22 11:26 Comment 06/04/22 22:55 Intake & Output 06/04/22 06/05/22 06/05/22 23:59 11:59 23:59 Intake Total 2430 / 3367.5 254.167 / 254.167 Output Total 300 / 500 Balance 2130 / 2867.5 254.167 / 254.167 Intake: IV 2430 / 3367.5 254.167 / 254.167 Output: Urine 300 / 500 Other: Urine Color Yellow Yellow Yellow Urine Appearance Clear Clear Clear Urine Odor None Comment unmeasured in toilet Stool Size Moderate Stool Characteristics Soft Formed Brown Voiding Methods Toilet Toilet Data Completed and Pending Completed studies during hospitalization [Text1]: EGD- normal Gastric outlet obstruction- suspected, but EGD and GAstric emptying stdy were fine Labs on day of discharge: Labs from last 24 hours 06/05/22 06/05/22 06/05/22 06:15 06:15 06:15 WBC 4.24 L RBC 4.51 Hgb 13.9 Hct 40.6 MCV 90 MCH 30.8 MCHC 34.2 RDW 13.8 Plt Count 54 L MPV 11.7 H Sodium 144 D Potassium 3.0 L Chloride 110 H Carbon Dioxide 25.6 Anion Gap 8.4 BUN 10 Creatinine 0.8 Est GFR (CKD-EPI 2020) 93.45 Glucose 73 L Hemoglobin A1c 8.4 H Calcium 8.1 L Magnesium 1.5 L PFSH All Active Problems Behavioral and psychological symptoms of dementia (Acute) 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
--- NOTE | 2022-06-05 15:12 | NUR.NOTE ---
Nursing Note: 1445: pt remains calm in bed, moving extremities freely in the bed. pt more alert than previously but remain appropriate. pt makes attempts to sit up and then lowers upper body back to bed. denies need for a drink at this time. TV on with appropriate, non-violent show. pt does make attempt to pull at IV which is covered with a gauze sleeve at this time; pt is distractable. At 1500, report given to Abner Cornell RN who takes over as PSO at the bedside. reviewed IM medications given to pt at approximately 1230 today. primary RNSachi in room to assess pt at this time.
--- NOTE | 2022-06-05 17:38 | CMDISCH_ITS ---
- If Service Date Differs Date of service: 06/05/22 Time of Service: 17:38 LACE Index Scoring Tool - Questions: Length of Stay (in days): 2 Acuity (Admit via E.D.?): Yes Comorbidities: Dementia E.D. Visits: 1 - Answers: Total Score: 9 Risk of Readmission: Low Risk Care Management Discharge Reason for Hospitalization: Gastric Outlet Obstruction Discharge Plan: Lars will return to [facility] when ready per MD. He will transport via [facility]. Patient/Family Education Needs: Review discharge instructions, discuss Ask Me Three; Lars is unable to meaningfully engage due to end stage dementia. Services Needed at Discharge: Alf Facility (Return to [facility]), Transportation ([facility])
== END 2022-06-05 17:06 | disposition intermediate care facility (04) | DRG 74 ==
LOC: ER 08:26 → MS 09:45
PROVIDERS: Surgery; Admitting Provider Surgery; Emergency Provider Emergency Medicine; Visit Provider Surgery
PROC: 0DJ68ZZ Inspection of Stomach, Via Natural or Artificial Opening Endoscopic (ICD-10-PCS; CPT 43235; principal; 2022-06-03 12:45)
DX: E11.43 Type 2 diabetes mellitus with diabetic autonomic (poly)neuropathy (principal); F02.811 Dementia in other diseases classified elsewhere, unspecified severity, with agitation; W18.39XA Other fall on same level, initial encounter; D69.6 Thrombocytopenia, unspecified; I10 Essential (primary) hypertension; H90.3 Sensorineural hearing loss, bilateral; K31.84 Gastroparesis; Z79.84 Long term (current) use of oral hypoglycemic drugs; G30.0 Alzheimer's disease with early onset
CPT/HCPCS: 43241; 36415; 36416; 78265; 80048; 80053; 82805; 82962; 83690; 85027; 87081; 87493; 87635; 96361; 96374; 96375; 96376; 99285; J1650; 70450; 71045; 74177; 81003; 81015; 83036; 83735; 84484; 85025; J1200; J1630; J2060; J2405; J2704; J3490; J7042

== ENCOUNTER 2022-06-09 11:09 | Emergency (ER) | payer OTHER, SELFPAY ==
[2022-06-09 11:11] VITALS: BP 132/65; PULSE 74; RESP 15; TEMP 36.5; O2SAT 100
--- NOTE | 2022-06-09 11:30 | DI.CT_ITS ---
Exam(s) CT HEAD CERVICAL SPINE WO EXAM: CT HEAD CERVICAL SPINE WO CLINICAL HISTORY: fall with head trauma, demented. TECHNIQUE: Imaging Protocol: Axial computed tomography images with coronal and sagittal reformatted images were created and reviewed COMPARISON: CT CT HEAD WO from 06/03/2022 FINDINGS: CT Head: Ventricles and Extra axial spaces: Normal in size and morphology for the patient's age. Hemorrhage: None. Cerebral parenchyma: There is no evidence of an acute territorial infarct. There are areas of decrea sed attenuation in the white matter consistent with chronic microvascular ischemic disease. Midline shift: None. Brainstem/Cerebellum: Normal. Calvarium: Normal. Visualized Paranasal sinuses/Mastoids: Clear. Soft Tissues: Unremarkable. CT Cervical Spine: Bones: No acute fracture or subluxation. There is moderate cervical spondylosis. Soft Tissues: Unremarkable. Lung Apices: Clear. IMPRESSION: 1. No acute intracranial process. 2. No acute fracture or subluxation in the cervical spine. 3. Findings were discussed with Catherine Zarate at 12:28 p.m. on 06/09/2022. RADIATION DOSE DELIVERED: 1,224.78mGy.cm Total DLP DATA REPOSITORY: All CT scans at this facility are submitted to the National Radiology Data Registry (NRDR) Dose Index Registry (DIR) with the [employer] (ACR). RADIATION OPTIMIZATION: All CT scans at this facility use at least one of these dose optimization te chniques: automated exposure control; mA and/or kV adjustment per patient size (includes targeted exa ms where dose is matched to clinical indication); or iterative reconstruction.
--- NOTE | 2022-06-09 11:36 | W.ED.GENAD ---
Discharge Plan Disposition Patient Disposition: HOME Condition: Stable Discharge Details Clinical Impression: Fall, Acute head trauma Primary Care Provider: [facility] ED Provider: Tony Sanchez Home Meds and New Rx's Prescriptions: No Action atorvastatin 40 mg Tablet 40 mg PO QHS sennosides 8.6 mg Tablet 17.2 mg PO BID PRN citalopram 40 mg Tablet 40 mg PO DAILY atenolol 25 mg Tablet 25 mg PO HS acetaminophen 500 mg Tablet 1,000 mg PO Q8H PRN famotidine 20 mg Tablet 20 mg PO BID ondansetron 4 mg Tablet,Disintegrating 4 mg PO Q8H PRN insulin lispro [Humalog KwikPen Insulin] 100 unit/mL Insulin Pen 1 sliding scale dose SUBCUT USEASDIRECTD memantine [Namenda] 10 mg Tablet 10 mg PO BID insulin glargine [Basaglar KwikPen U-100 Insulin] 100 unit/mL (3 mL) Insulin Pen 25 unit SUBCUT QAM Victoza 2-Dionisio 0.6 mg/0.1 mL (18 mg/3 mL) Pen Injector 0.6 mg SUBCUT DAILY Discharge Instructions Instructions: Fall Prevention for Older Adults (ED), Head Injury (ED) Additional Instructions: Please contact your primary care physician to arrange follow-up. Return to the ER immediately for any worsening or new concerning symptoms. Referrals: [facility] [Primary Care Provider] - Discharge Data Discharge Date/Time-TO BE ENTERED AT DEPARTURE: 06/09/22 13:19 Medical Decision Making 1139 --32-year-old male with history of dementia, here after fall with head trauma. Patient is altered which limits history and examination. Plan to obtain CT of the head to assess for acute intracranial traumatic injury as well as CT of the cervical spine to assess for fracture given mechanism. 1230 -- CT head and cspine interpreted by radiology: negative for injury. C-spine was cleared by nursing. Plan to discharge back to nursing rehab facility. Usual customary discharge instructions were provided. HPI General Mode of arrival: ambulatory. Date/Time Provider Initiated Documentation: 06/09/22 11:31. Limitations to Documentation: altered mental status. Information obtained by: EMS. HPI Narrative: 72-year-old male with history of dementia, here after fall at skilled nursing with head trauma. History review of systems is limited secondary to dementia. Apparently patient fell and struck his head. Per skilled nursing staff, patient at baseline mentation. Patient denies pain. Related Data Home Medications Medication Instructions Recorded Confirmed acetaminophen 500 mg tablet 1,000 mg PO Q8H PRN 06/03/22 06/03/22 atenolol 25 mg tablet 25 mg PO HS 06/03/22 06/03/22 atorvastatin 40 mg tablet 40 mg PO QHS 06/03/22 06/03/22 citalopram 40 mg tablet 40 mg PO DAILY 06/03/22 06/03/22 famotidine 20 mg tablet 20 mg PO BID 06/03/22 06/03/22 insulin glargine 100 unit/mL (3 25 unit subcut QAM 06/03/22 06/03/22 mL) subcutaneous pen (Basaglar KwikPen U-100 Insulin) insulin lispro 100 unit/mL 1 sliding scale dose subcut 06/03/22 06/03/22 subcutaneous pen (Humalog KwikPen USEASDIRECTD (U-100) Insulin) liraglutide 0.6 mg/0.1 mL (18 mg/3 0.6 mg subcut DAILY 06/03/22 06/03/22 mL) subcutaneous pen injector (Victoza 2-Dionisio) memantine 10 mg tablet (Namenda) 10 mg PO BID 06/03/22 06/03/22 ondansetron 4 mg disintegrating 4 mg PO Q8H PRN 06/03/22 06/03/22 tablet sennosides 8.6 mg tablet 17.2 mg PO BID PRN 06/03/22 06/03/22 Allergies Allergy/AdvReac Type Severity Reaction Status Date / Time codeine Allergy Unverified 06/03/22 03:42 Sulfa (Sulfonamide Allergy Unverified 06/03/22 03:42 Antibiotics) tetracycline Allergy Unverified 06/03/22 03:42 General Stated Complaint: Trauma YUDITH: 3 Review of Systems Unobtainable due to mental status PFSH All Active Problems (Updated 06/09/22 @ 12:35 by Tony Sanchez MD) Fall (Acute) Acute head trauma (Acute) Behavioral and psychological symptoms of dementia (Acute) 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) Hypertension, benign (Acute) 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, bilateral (Acute) Social History Smoking/Tobacco Use Status: Unknown Smoking risk assessment performed?: Yes Alcohol Intake: never Drug use: Never Substance use type: does not use Do you feel safe at home: Yes (ADITHYA) Do you feel safe in your relationship?: Yes Exam Const General: cooperative and no acute distress HENMT Mouth: moist mucous membranes Eyes EOM: EOM intact bilaterally Neck Neck: trachea midline and supple Resp Auscultation: clear to auscultation bilaterally, no rales, no rhonchi and no wheezes Cardio Rate: regular rate and not tachycardic Rhythm: regular rhythm GI Palpation: soft, not firm, no guarding, no masses, not rigid and nontender Back/Spine/Pelvis Pelvis: no pain with anterior-posterior compression and no pain with lateral compression Skin General skin exam: no rashes or lesions noted Neuro General: patient alert, patient awake, oriented Patient Orientation: Person and Confused and tone normal Cognition: abnormal cognition Extrem General: no edema Psych Appearance: grossly normal Course Vital Signs Vital signs: Vital Signs Temperature 36.5 C 06/09/22 11:11 Pulse 74 06/09/22 11:11 Respiratory Rate 15 06/09/22 11:11 Blood Pressure 132/65 06/09/22 11:11 Pulse Oximetry 100 06/09/22 11:11 Temperature 36.5 C 06/09/22 11:11 Temperature Source Skin 06/09/22 11:11 Pulse 74 06/09/22 11:11 Respiratory Rate 15 06/09/22 11:11 Respiratory Effort 06/09/22 11:31 Respiratory Depth Normal 06/09/22 11:31 Respiratory Pattern Normal 06/09/22 11:31 Blood Pressure 132/65 06/09/22 11:11 Blood Pressure Position Supine 06/09/22 11:11 Pulse Oximetry 100 06/09/22 11:11 Oxygen Delivery Method Room Air 06/09/22 11:11 Oxygen Flow Rate 0 06/09/22 11:11
== END 2022-06-09 13:19 | disposition home or self-care (01) ==
PROVIDERS: Emergency Provider Student in an Organized Health Care Education/Training Program
DX: S09.8XXA Other specified injuries of head, initial encounter (principal); W18.39XA Other fall on same level, initial encounter; F03.918 Unspecified dementia, unspecified severity, with other behavioral disturbance
CPT/HCPCS: 99284; 70450; 72125; 99283